=== PATIENT | female | born 1980 | race Asian ===

== ENCOUNTER 2016-04-21 10:12 | Emergency (ER) | payer BC ==
[~2016-04-21] VITALS: Ht 152.4 cm; Wt 64.5 kg
[~2016-04-21 10:12] MED LIST: AUG875 PO; AZIT250T6 PO; IBUP-1542 PO; PROM6.25 PO
[2016-04-21 10:31] VITALS: Ht 152.4 cm; Wt 64.5 kg
[2016-04-21] MEDS ORDERED: IBUPROFEN 600 MG TAB PO ONE (13:30)
--- NOTE | 2016-04-21 13:30 | ERD ---
ER Documentation Chief Complaint Date/Time DATE: 04/21/16 TIME: 13:25 Chief Complaint cough x 3 days; sore throat HPI Otherwise healthy 35-year-old female presents to the emergency department complaining of fever, chills, cough, sore throat, headache associated with coughing, congestion, and body aches 3 days. Patient accompanies her daughter to the emergency department with similar symptoms and notes other sick contacts at home. Mother states her symptoms improved somewhat at home with use of Motrin. Patient denies any abdominal pain, nausea, vomiting, diarrhea, dysuria , flank pain, dizziness. Patient's last period was 1 week ago normal for her. ROS All systems reviewed and are negative except as per history of present illness. Medications Home Meds Active Scripts Benzonatate* (Tessalon Perle*) 100 Mg Capsule, 100 MG PO Q8H Y for COUGH for 7 Days, CAP Prov:PAXTON COYNE PA-C 04/21/16 Ibuprofen* (Motrin*) 600 Mg Tab, 600 MG PO Q6H Y for PAIN for 7 Days, TAB Prov:PAXTON COYNE PA-C 04/21/16 Promethazine HCl/Codeine (Prometh-Codein 6.25-10 mg/5 ml) 5 Ml Syrup, 5 ML PO QHS for 5 Days Prov:PAXTON COYNE PA-C 04/21/16 Guaifenesin/Pseudoephedrne HCl (Mucinex D ER 1,200-120 mg Tab) 1 Each Tab.er.12h , 2 EACH PO QAM for 5 Days, TAB Prov:PAXTON COYNE PA-C 04/21/16 Ibuprofen* (Ibuprofen*) 600 Mg Tablet, 600 MG PO Q6 for FEVER, #30 TAB Prov:AURELIO CHANDRA PA-C 10/13/14 Promethazine w/Codeine* (Phenergan w/Codeine* Syrup) 5 Ml Syrup, 5 ML PO Q4H Y for COUGH, #240 ML Prov:AURELIO CHANDRA PA-C 10/13/14 Amoxicillin-Clavulanate K* (Augmentin*) 875 Mg Tab, 875 MG PO BID for 7 Days, TAB Prov:AURELIO CHANDRA PA-C 10/13/14 Azithromycin* (Azithromycin*) 250 Mg Tablet, 250 MG PO DAILY, #6 TAB Azithromycin 500 mg by mouth day 1, then 250 mg by mouth daily for days 2-5 Prov:AURELIO CHANDRA PA-C 10/13/14 Allergies Allergies: Coded Allergies: No Known Drug Allergy (Verified Allergy, Unknown, 04/21/16) PMhx/Soc Medical and Surgical Hx: pt denies Medical Hx, pt denies Surgical Hx History of Surgery: No Anesthesia Reaction: No Hx Neurological Disorder: No Hx Respiratory Disorders: No Hx Cardiac Disorders: No Hx Psychiatric Problems: No Hx Miscellaneous Medical Probl: No Hx Alcohol Use: No Hx Substance Use: No Hx Tobacco Use: No Smoking Status: Never smoker Physical Exam Vitals Vital Signs Date Time Temp Pulse Resp B/P Pulse Ox O2 Delivery O2 Flow Rate FiO2 04/21/16 10:31 99.2 100 18 142/100 98 Physical Exam Const: Well-developed, well-nourished, no acute distress Head: Atraumatic Eyes: Normal Conjunctiva ENT: Normal External Ears, Nose and Mouth. Oropharynx mildly erythematous with 1+ tonsillar swelling although no exudate identified. No lymphadenopathy. Tympanic membranes without erythema or swelling bilaterally. Neck: Full range of motion..~ No meningismus. Resp: Clear to auscultation bilaterally, no wheezes, rhonchi, rales Cardio: Regular rate and rhythm, no murmurs Abd: Soft, non tender, non distended. Normal bowel sounds Skin: No petechiae or rashes Back: No midline or flank tenderness Ext: No cyanosis, or edema Neur: Awake and alert Psych: Normal Mood and Affect Results 24 hrs Current Medications Medications (Trade) Dose Ordered Sig/Robson Route PRN Reason Start Time Stop Time Status Last Admin Dose Admin Ibuprofen (Motrin) 600 mg ONCE ONCE PO 04/21/16 13:30 04/21/16 13:31 DC Procedures/MDM Otherwise healthy 35-year-old female presents emergency department accompanied by daughter who both have flulike symptoms for the past few days. Patient received Motrin while in the emergency department and reports improvement of sore throat and headache. Physical exam unremarkable without evidence of respiratory distress, wheezing, or bacterial infection. Patient well and nontoxic appearing, well hydrated. The patient's clinical presentation is very consistent with an acute viral syndrome. The patient does not exhibit any clinical signs or symptoms concerning for serious bacterial infection or systemic illness. Based on history and clinical exam findings the patient does not appear to have evidence of pneumonia, strep pharyngitis, urinary tract infection, bacteremia, sepsis, or meningitis. For these reasons I do not believe it is necessary to obtain laboratory testing or diagnostic imaging. I believe it would be appropriate for symptom control, and close outpatient primary care follow-up. Based on patient's history of present illness and physical examination the decision was made to discharge. The patient was re-evaluated after ED treatment and stabilizing measures, and symptoms have improved. There is no evidence of life threatening injuries or illnesses at this time. On re-examination, patient resting in no distress, stable vital signs, reports feeling better and safe for discharge with outpatient follow up with PMD in 1-2 days. Patient given return precautions. Departure Diagnosis: Primary Impression: Sore throat Additional Impressions: Flu-like symptoms Congestion of nasal sinus Cough PAXTON COYNE PA-C Apr 21, 2016 13:30
[2016-04-21] MEDS ORDERED: IBUP-1542 PO (13:41)
[2016-04-21] MEDS ORDERED: BENZ100C70 PO (13:41)
[2016-04-21] MEDS ORDERED: GUAI-106 PO (13:41)
[2016-04-21] MEDS ORDERED: PROM5SYR2 PO (13:41)
[2016-04-21 14:09] VITALS: BP 135/80; PULSE 78; RESP 18; TEMP 98.5
== END 2016-04-21 14:11 | disposition home or self-care (01) ==
LOC: FTE 10:12
DX: J02.9 Acute pharyngitis, unspecified (principal); R09.81 Nasal congestion; R05 Cough; R51 Headache
CPT/HCPCS: 99284; Z7610

== ENCOUNTER 2018-04-02 12:32 | Emergency (ER) | payer BC ==
[~2018-04-02] VITALS: Ht 157.5 cm; Wt 67.8 kg
[~2018-04-02 12:32] MED LIST changes: +AZIT250T13 PO; -AZIT250T6 PO; +BENZ-6 PO; +GUAI-106 PO; +PROM5SYR2 PO
[2018-04-02 12:46] VITALS: Ht 157.5 cm; Wt 67.8 kg
--- NOTE | 2018-04-02 16:08 | ERD ---
ER Documentation Chief Complaint Chief Complaint Complains of back pain x 2 days HPI 37-year-old female, presents emergency department, complaining of 2 days with bilateral lower back pain, associated with nausea. The patient denies any recent trauma. No fever, no chills, no rashes. ROS All systems reviewed and are negative except as per history of present illness. Medications Home Meds Active Scripts Benzonatate* (Tessalon Perle*) 100 Mg Capsule, 100 MG PO Q8H PRN for COUGH for 7 Days, CAP Prov:PAXTON COYNE PA-C 04/21/16 Ibuprofen* (Motrin*) 600 Mg Tab, 600 MG PO Q6H PRN for PAIN for 7 Days, TAB Prov:PAXTON COYNE PA-C 04/21/16 Promethazine HCl/Codeine (Prometh-Codein 6.25-10 mg/5 ml) 5 Ml Syrup, 5 ML PO QHS for 5 Days Prov:PAXTON COYNE PA-C 04/21/16 Guaifenesin/Pseudoephedrne HCl (Mucinex D ER 1,200-120 mg Tab) 1 Each Tab.er.12h, 2 EACH PO QAM for 5 Days, TAB Prov:PAXTON COYNE PA-C 04/21/16 Ibuprofen* (Ibuprofen*) 600 Mg Tablet, 600 MG PO Q6 for FEVER, #30 TAB Prov:AURELIO CHANDRA PA-C 10/13/14 Promethazine w/Codeine* (Phenergan w/Codeine* Syrup) 5 Ml Syrup, 5 ML PO Q4H PRN for COUGH, #240 ML Prov:AURELIO CHANDRA PA-C 10/13/14 Amoxicillin-Clavulanate K* (Augmentin*) 875 Mg Tab, 875 MG PO BID for 7 Days, TAB Prov:AURELIO CHANDRA PA-C 10/13/14 Azithromycin* (Azithromycin*) 250 Mg Tablet, 250 MG PO DAILY, #6 TAB Azithromycin 500 mg by mouth day 1, then 250 mg by mouth daily for days 2-5 Prov:AURELIO CHANDRA PA-C 10/13/14 Allergies Allergies: Coded Allergies: No Known Drug Allergy (Verified Allergy, Unknown, 04/21/16) PMhx/Soc History of Surgery: No Anesthesia Reaction: No Hx Neurological Disorder: No Hx Respiratory Disorders: No Hx Cardiac Disorders: No Hx Psychiatric Problems: No Hx Miscellaneous Medical Probl: No Hx Alcohol Use: No Hx Substance Use: No Hx Tobacco Use: No FmHx Family History: No diabetes, No coronary disease Physical Exam Vitals Vital Signs Date Temp Pulse Resp B/P (MAP) Pulse Ox O2 O2 Flow FiO2 Time Delivery Rate 04/02/18 99.2 78 20 187/94 100 12:46 (125) Physical Exam Const: No acute distress Head: Atraumatic Eyes: Normal Conjunctiva ENT: Normal External Ears, Nose and Mouth. Neck: Full range of motion. No meningismus. Resp: Clear to auscultation bilaterally Cardio: Regular rate and rhythm, no murmurs Abd: Soft, non tender, non distended. Normal bowel sounds Skin: No petechiae or rashes Back: No midline or flank tenderness Ext: No cyanosis, or edema Neur: Awake and alert Psych: Normal Mood and Affect Results 24 hrs Laboratory Tests Test 04/02/18 16:23 04/02/18 16:25 Bedside Urine pH (LAB) 6.0 Bedside Urine Protein (LAB) 1+ Bedside Urine Glucose (UA) Negative Bedside Urine Ketones (LAB) Negative Bedside Urine Blood 3+ Bedside Urine Nitrite (LAB) Negative Bedside Urine Leukocyte Esterase (L Negative POC Beta HCG, Qualitative NEGATIVE Procedures/MDM Differential diagnosis include but not limited to: lumbar sprain/strain, sciatica, herniated disk, UTI less likely pyelo, kidney stone. Neurovascular exam grossly intact. no clinical findings suggestive of acute infectious process, no acute deformity, no edema, no rashes. Physical examination and clinical presentation consistent most likely with acute on chronic back pain with sciatica. Results and clinical impression discussed with the patient who agrees with management. The patient is stable to be treated outpatient and will be discharged home with recommendations and close monitoring The patient was instructed to follow up with the primary care provider in the next 48h. If symptoms persist, worsen or new symptoms develop, then patient should return to the ED immediately. Instructions explained and given to patient with acknowledgment and demonstrated understanding. Disclaimer: Inadvertent spelling and grammatical errors are likely due to EHR/dictation software use and do not reflect on the overall quality of patient care. Also, please note that the electronic time recorded on this note does not necessarily reflect the actual time of the patient encounter. Departure Diagnosis: Primary Impression: Kidney stone on left side Condition: Stable Additional Instructions: Thank you very much for allowing us to participate in your care. Your health and safety is our top priority at [facility]. Call your primary care doctor TOMORROW for an appointment during the next 2-4 days and bring all the information and medications prescribed. Have prescriptions filled and follow precisely the directions on the label. If the symptoms get worse and your provider is unavailable, return to the Emergency Department immediately. LIZ VINSON MD Apr 02, 2018 16:08
[2018-04-02] MEDS ORDERED: CIPR-193 PO (16:54)
[2018-04-02] MEDS ORDERED: TAMS-14 PO (16:54)
[2018-04-02] MEDS ORDERED: IBUP-1561 PO (16:54)
[2018-04-02 17:06] VITALS: BP 132/84; PULSE 74; RESP 20
== END 2018-04-02 17:07 | disposition home or self-care (01) ==
LOC: FTE 12:32
DX: N20.0 Calculus of kidney (principal)
CPT/HCPCS: 81003; 81025; 99283

== ENCOUNTER 2018-07-01 17:36 | Emergency (ER) | payer BC ==
[~2018-07-01] VITALS: Wt 69.7 kg
[~2018-07-01 17:36] MED LIST changes: +CIPR-193 PO; +IBUP-1561 PO; +TAMS-14 PO
[2018-07-01] MEDS ORDERED: SOD CHLORIDE 0.9% 1,000 ML IV STA (19:26)
[2018-07-01] MEDS ORDERED: KETOROLAC 30 MG INJ IV STA (19:26)
[2018-07-01] MEDS ORDERED: ONDANSETRON 4 MG INJ IV STA (19:26)
[2018-07-01] MEDS ORDERED: LISINOPRIL 20 MG TAB PO ONE (20:30)
[2018-07-01] MEDS ORDERED: HYDROCHLOROTHIAZIDE 25 MG TAB PO ONE (20:30)
[2018-07-01] MEDS ORDERED: TAMS-14 PO (22:05)
[2018-07-01] MEDS ORDERED: CIPR500T4 PO (22:05)
[2018-07-01] MEDS ORDERED: NAPR-985 PO (22:05)
[2018-07-01] MEDS ORDERED: CEFTRIAXONE 1 GM/50 ML (PMX) 50 ML IVPB ONE (22:30)
--- NOTE | 2018-07-01 22:30 | ERD ---
ER Documentation Chief Complaint Chief Complaint BACK PAIN HPI 38-year-old female patient with past medical history of hypertension presents the ED complaining of left flank pain that she describes as sharp that started yesterday. Patient reports that she does not take her lisinopril today. States that she does not have any pain with urination. Denies any chest pain, shortness of breath, vomiting, diarrhea, neck stiffness, constipation. Patient reports that she is slightly nauseous. Denies any neck stiffness. Patient that she is unsure if she has a diagnosis of kidney stones, however reported that she had hematuria in the past. States her last bowel movement was earlier today. Reports that she is currently on her menstruation. ROS All systems reviewed and are negative except as per history of present illness. Medications Home Meds Active Scripts Ondansetron (Ondansetron Odt) 4 Mg Tab.rapdis, 4 MG PO Q6H PRN for NAUSEA AND/OR VOMITING, #10 TAB Prov:ERICH MOHAN PA-C 07/01/18 Naproxen* (Naprosyn*) 500 Mg Tablet, 500 MG PO BID PRN for PAIN AND/OR INFLAMMATION, #30 TAB Prov:ERICH MOHAN PA-C 07/01/18 Ciprofloxacin Hcl* (Ciprofloxacin Hcl*) 500 Mg Tablet, 500 MG PO BID for 10 Days, TAB Prov:ERICH MOHAN PA-C 07/01/18 Tamsulosin Hcl* (Flomax*) 0.4 Mg Cap.er.24h, 0.4 MG PO HS, #30 CAP Prov:ERICH MOHAN PA-C 07/01/18 Tamsulosin Hcl* (Flomax*) 0.4 Mg Cap.er.24h, 0.4 MG PO BID for 3 Days, #6 CAP Prov:LIZ VINSON MD 04/02/18 Ibuprofen* (Motrin*) 400 Mg Tab, 400 MG PO Q8, #15 TAB Prov:LIZ VINSON MD 04/02/18 Ciprofloxacin Hcl* (Ciprofloxacin Hcl*) 250 Mg Tablet, 250 MG PO BID for 5 Days, #10 TAB Prov:LIZ VINSON MD 04/02/18 Benzonatate* (Tessalon Perle*) 100 Mg Capsule, 100 MG PO Q8H PRN for COUGH for 7 Days, CAP Prov:PAXTON COYNE PA-C 04/21/16 Ibuprofen* (Motrin*) 600 Mg Tab, 600 MG PO Q6H PRN for PAIN for 7 Days, TAB Prov:PAXTON COYNE PA-C 04/21/16 Promethazine HCl/Codeine (Prometh-Codein 6.25-10 mg/5 ml) 5 Ml Syrup, 5 ML PO QHS for 5 Days Prov:PAXTON COYNE PA-C 04/21/16 Guaifenesin/Pseudoephedrne HCl (Mucinex D ER 1,200-120 mg Tab) 1 Each Tab.er.12h, 2 EACH PO QAM for 5 Days, TAB Prov:PAXTON COYNE PA-C 04/21/16 Ibuprofen* (Ibuprofen*) 600 Mg Tablet, 600 MG PO Q6 for FEVER, #30 TAB Prov:AURELIO CHANDRA PA-C 10/13/14 Promethazine w/Codeine* (Phenergan w/Codeine* Syrup) 5 Ml Syrup, 5 ML PO Q4H PRN for COUGH, #240 ML Prov:AURELIO CHANDRA PA-C 10/13/14 Amoxicillin-Clavulanate K* (Augmentin*) 875 Mg Tab, 875 MG PO BID for 7 Days, TAB Prov:AURELIO CHANDRA PA-C 10/13/14 Azithromycin* (Azithromycin*) 250 Mg Tablet, 250 MG PO DAILY, #6 TAB Azithromycin 500 mg by mouth day 1, then 250 mg by mouth daily for days 2-5 Prov:AURELIO CHANDRA PA-C 10/13/14 Allergies Allergies: Coded Allergies: No Known Drug Allergy (Verified Allergy, Unknown, 04/21/16) PMhx/Soc History of Surgery: No Anesthesia Reaction: No Hx Neurological Disorder: No Hx Respiratory Disorders: No Hx Cardiac Disorders: No Hx Psychiatric Problems: No Hx Miscellaneous Medical Probl: No Hx Alcohol Use: No Hx Substance Use: No Hx Tobacco Use: No Smoking Status: Never smoker FmHx Family History: No diabetes, No coronary disease Physical Exam Vitals Vital Signs Date Temp Pulse Resp B/P (MAP) Pulse Ox O2 O2 Flow FiO2 Time Delivery Rate 07/01/18 99.0 93 18 165/98 99 17:41 (120) Physical Exam Const: [id number], well-nourished. In no acute distress. Head: Atraumatic, normocephalic Eyes: Normal Conjunctiva without injection. No purulent discharge. ENT: Normal external ear, nose. Moist oropharynx without tonsillar exudates. Non-erythematous pharynx. Uvula midline. No drooling. No trismus. Neck: No cervical midline tenderness. Full range of motion. No meningismus. No cervical lymphadenopathy. No JVD. Resp: Clear to auscultation bilaterally. No wheezing, rhonchi, rales, or crackles. No accessory muscle use. No retractions. Cardio: Regular rate and rhythm. No murmurs, rubs or gallops. Abd: Soft, nontender, non distended. Normal bowel sounds. No palpable masses. No rebound tenderness. No guarding. Negative McBurney's point. Negative psoas sign. Negative obturator sign. : See exam in MDM. Skin: No petechiae or rashes Back: No midline tenderness. No CVA tenderness. Ext: No cyanosis, or edema. Neur: Awake and alert. Normal gait. Normal coordination. Psych: Normal Mood and Affect Results 24 hrs Laboratory Tests Test 07/01/18 20:29 07/01/18 20:34 White Blood Count 19.7 10^3/ul Red Blood Count 5.08 10^6/ul Hemoglobin 13.8 g/dl Hematocrit 44.0 % Mean Corpuscular Volume 86.6 fl Mean Corpuscular Hemoglobin 27.2 pg Mean Corpuscular Hemoglobin Concent 31.4 g/dl Red Cell Distribution Width 13.5 % Platelet Count 306 10^3/UL Mean Platelet Volume 9.5 fl Immature Granulocytes % 0.300 % Neutrophils % 85.2 % Lymphocytes % 8.1 % Monocytes % 5.9 % Eosinophils % 0.1 % Basophils % 0.4 % Nucleated Red Blood Cells % 0.0 /100WBC Immature Granulocytes # 0.060 10^3/ul Neutrophils # 16.8 10^3/ul Lymphocytes # 1.6 10^3/ul Monocytes # 1.2 10^3/ul Eosinophils # 0.0 10^3/ul Basophils # 0.1 10^3/ul Nucleated Red Blood Cells # 0.0 10^3/ul Urine Color YELLOW Urine Clarity CLOUDY Urine pH 6.0 Urine Specific [place] 1.027 Urine Ketones NEGATIVE mg/dL Urine Nitrite NEGATIVE mg/dL Urine Bilirubin NEGATIVE mg/dL Urine Urobilinogen NEGATIVE mg/dL Urine Leukocyte Esterase NEGATIVE Michael/ul Urine Microscopic RBC > 182 /HPF Urine Microscopic WBC 4 /HPF Urine Squamous Epithelial Cells FEW /HPF Urine Calcium Oxalate Crystals MANY /HPF Urine Mucus FEW /HPF Urine Hemoglobin 3+ mg/dL Urine Glucose NEGATIVE mg/dL Urine Total Protein 1+ mg/dl Sodium Level 138 mmol/L Potassium Level 4.3 mmol/L Chloride Level 100 mmol/L Carbon Dioxide Level 26 mmol/L Anion Gap 12 Blood Urea Nitrogen 20 mg/dl Creatinine 0.91 mg/dl Est Glomerular Filtrat Rate mL/min > 60 mL/min Glucose Level 110 mg/dl Calcium Level 9.6 mg/dl Total Bilirubin 0.6 mg/dl Direct Bilirubin 0.00 mg/dl Indirect Bilirubin 0.6 mg/dl Aspartate Amino Transf (AST/SGOT) 30 IU/L Alanine Aminotransferase (ALT/SGPT) 32 IU/L Alkaline Phosphatase 52 IU/L Total Protein 8.0 g/dl Albumin 4.6 g/dl Globulin 3.40 g/dl Albumin/Globulin Ratio 1.35 Lipase 86 U/L POC Beta HCG, Qualitative NEGATIVE Current Medications Medications Dose Sig/Robson Start Time Status Last (Trade) Ordered Route PRN Stop Time Admin Dose Reason Admin Sodium 1,000 ml @ Q1H STAT 07/01/18 DC 07/01/18 Chloride 1,000 mls/hr IV 19:26 20:15 07/01/18 20:25 Ondansetron 4 mg ONCE STAT 07/01/18 DC 07/01/18 HCl (Zofran IV 19:26 20:15 Inj) 07/01/18 19:28 Ketorolac 30 mg ONCE STAT 07/01/18 DC 07/01/18 Tromethamine IV 19:26 20:16 (Toradol) 07/01/18 19:28 Lisinopril 20 mg ONCE ONCE 07/01/18 DC 07/01/18 (Zestril) PO 20:30 21:07 07/01/18 20:31 25 mg ONCE ONCE 07/01/18 DC 07/01/18 Hydrochloroth PO 20:30 21:07 iazide 07/01/18 20:31 (Hydrochlorot hiazide) Ceftriaxone 50 ml @ ONCE ONCE 07/01/18 DC 07/01/18 Sodium 100 mls/hr IVPB 22:30 22:12 07/01/18 22:35 Procedures/MDM 38-year-old female patient with a past medical history of hypertension presents to ED complaining of left flank pain that started yesterday. Patient is afebrile and nontoxic-appearing. Patient is a pressure is 165/98. Patient reports that she did not take her blood pressure medications, patient takes lisinopril and HCTZ which was given to patient here in the ED. Blood Pressure Assessment: Patient's blood pressure was elevated (>120/80) but appears stable without evidence of hypertension emergency or urgency. The patient was counseled about the risks of hypertension and urged to pursue outpatient monit oring and therapy within a week with their primary care physician. Patient was further worked up with CBC, CMP, lipase, UA, CT of the abdomen and pelvis without contrast. Patient's pain and symptoms have improved after treatment with 30 mg IV Toradol, 4 mg IV Zofran, 1 L normal saline. CBC: No leukocytosis. No e/o of systemic infection. No e/o anemia. CMP: No e/o severe acidosis, alkalosis, renal failure, diabetic ketoacidosis, liver disease Lipase within normal limits. Urine: No leukocyte esterase, no nitrites, 3+ hematuria. Urine : Negative IMPRESSION: 1. A 6 mm stone with average Hounsfield units of 1387 seen in the distal left ureter with severe proximal left hydroureternephrosis. The left kidney is asymmetrically enlarged compared to the right suggestive of edema, with perinephric fat stranding. 2. Additional findings as detailed above. Patient was noted to have leukocytosis of 19.4. Patient has a 6 mm nephrolithiasis noted at the distal urethra junction, causing severe hydr onephrosis. Patient was discussed with my supervising physician, Dr. Mary who consulted Dr. Torres (urologist) stated that patient can be managed on outpatient basis with urologist. Patient will be discharged with a prescription for ciprofloxacin, tamsulosin for further treatment. Low suspicion for septic renal stone, ectopic , ovarian torsion, gastritis, GERD, peptic ulcer disease, cholecystitis, choledocholithiasis, cholangitis, pancreatitis, appendicitis, bowel obstruction, ileus, volvulus, septic rental stone, pyelonephritis, hepatitis, perforated viscus, diverticulitis, strangulated/incarcerated hernia, DKA, acute abdomen, mesenteric ischemia or other emergent conditions. Diagnosis: Kidney Stone Discharge medications: Ciprofloxacin, Tamsulosin, Zofran, Naproxen Follow up with primary care physician in 1-2 days for referral to tree sapper. Instructed patient to return to the ED sooner for any worsening symptoms. Patient's questions were answered. Patient understood and agreed with discharge plan. Patient discharged stable. Departure Diagnosis: Primary Impression: Kidney stone Condition: Stable Patient Instructions: Kidney Stone W/ Colic Referrals: COMMUNITY CLINICS YOU HAVE RECEIVED A MEDICAL SCREENING EXAM AND THE RESULTS INDICATE THAT YOU DO NOT HAVE A CONDITION THAT REQUIRES URGENT TREATMENT IN THE EMERGENCY DEPARTMENT. FURTHER EVALUATION AND TREATMENT OF YOUR CONDITION CAN WAIT UNTIL YOU ARE SEEN IN YOUR DOCTORS OFFICE WITHIN THE NEXT 1-2 DAYS. IT IS YOUR RESPONSIBILITY TO MAKE AN APPOINTMENT FOR FOLOW-UP CARE. IF YOU HAVE A PRIMARY DOCTOR --you should call your primary doctor and schedule an appointment IF YOU DO NOT HAVE A PRIMARY DOCTOR YOU CAN CALL OUR PHYSICIAN REFERRAL HOTLINE AT IF YOU CAN NOT AFFORD TO SEE A PHYSICIAN YOU CAN CHOSE FROM THE FOLLOWING [facility] [address] [facility]. [facility] [address] [facility] [address] [facility] [facility] [address] [facility]. [facility] [address] [facility]. [facility]. [address] [facility]. [facility] YOU HAVE RECEIVED A MEDICAL SCREENING EXAM AND THE RESULTS INDICATE THAT YOU DO NOT HAVE A CONDITION THAT REQUIRES URGENT TREATMENT IN THE EMERGENCY DEPARTMENT. FURTHER EVALUATION AND TREATMENT OF YOUR CONDITION CAN WAIT UNTIL YOU ARE SEEN IN YOUR DOCTORS OFFICE WITHIN THE NEXT 1-2 DAYS. IT IS YOUR RESPONSIBILITY TO MAKE AN APPOINTMENT FOR FOLOW-UP CARE. IF YOU HAVE A PRIMARY DOCTOR --you should call your primary doctor and schedule and appointment IF YOU DO NOT HAVE A PRIMARY DOCTOR YOU CAN CALL OUR PHYSICIAN REFERRAL HOTLINE AT . IF YOU CAN NOT AFFORD TO SEE A PHYSICIAN YOU CAN CHOSE FROM THE FOLLOWING [facility] INSTITUTIONS: [facility] [address] [place] [address] [facility] [address] [place] [address] [facility] [address] [place] [address] [facility] Additional Instructions: Call your primary care doctor TOMORROW for an appointment during the next 2-3 days.See the doctor sooner or return here if your condition worsens before your appointment time. ERICH MOHAN PA-C July 01, 2018 22:30
[2018-07-01] MEDS ORDERED: ONDA4TAB14 PO (22:33)
[2018-07-01 22:34] VITALS: BP 134/86; PULSE 99; RESP 16
== END 2018-07-01 22:35 | disposition home or self-care (01) ==
LOC: FTE 17:36
DX: N20.0 Calculus of kidney (principal); I10 Essential (primary) hypertension
CPT/HCPCS: 74176; 80053; 81001; 81025; 83690; 85025; J0696; J1885; J2405; J7030; Z7610; 36415; 96374; 96375